=== PATIENT | female | born 1965 | race Caucasian/White ===

== ENCOUNTER 2016-11-08 03:39 | Emergency (ER) | payer BC, OTHER ==
[~2016-11-08] VITALS: Ht 167.6 cm; Wt 72.0 kg
[~2016-11-08 03:39] MED LIST: 1-ME1LIQ PO; LORTA5 PO; PERC5TAB12 PO; TAMS.4 PO; TAMS0.4C67 PO; ZOFR4TAB3 PO; ZOFR4TAB3 SL
[2016-11-08 03:41] VITALS: BP 168/90; PULSE 84; RESP 16; TEMP 97.9; O2SAT 96
[2016-11-08] MEDS ORDERED: AMLO10TA2 PO (03:59)
[2016-11-08] MEDS ORDERED: CYCL1TAB29 PO (03:59)
[2016-11-08] MEDS ORDERED: MELO-1 PO (03:59)
[2016-11-08] MEDS ORDERED: OMEP20TA PO (03:59)
[2016-11-08] MEDS ORDERED: LISI-515 PO (03:59)
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
[2016-11-08] MEDS ORDERED: BACT800T5 PO (04:28)
== END 2016-11-08 04:37 | disposition home or self-care (01) ==
LOC: NEPB 03:39
DX: L03.111 Cellulitis of right axilla (principal); I10 Essential (primary) hypertension; Z79.899 Other long term (current) drug therapy
CPT/HCPCS: 99283

== ENCOUNTER 2017-04-15 11:12 | Emergency (ER) | payer OTHER ==
[~2017-04-15] VITALS: Ht 157.5 cm; Wt 70.0 kg
[~2017-04-15 11:12] MED LIST changes: -1-ME1LIQ PO; +AMLO10TA2 PO; +BACT800T5 PO; +CYCL1TAB29 PO; +LISI-515 PO; -LORTA5 PO; +MELO-1 PO; +OMEP20TA PO; -PERC5TAB12 PO; -TAMS.4 PO; -TAMS0.4C67 PO; -ZOFR4TAB3 PO; -ZOFR4TAB3 SL
[2017-04-15 11:14] VITALS: BP 137/85; PULSE 99; RESP 18; TEMP 98.6; O2SAT 99
--- NOTE | 2017-04-15 11:26 | PD ---
Physical Exam Time Seen by Provider: 11:24 Narrative 51 y/o female here for evaluation of anxiety/depression. Vital signs reviewed. Seen at triage desk. Awaiting bed placement. Data Data Last Documented VS Vital Signs Date Time Temp Pulse Resp B/P Pulse Ox O2 Delivery O2 Flow Rate FiO2 04/15/17 11:14 98.6 99 18 137/85 99 Room Air [facility] Medical Record Reviewed: Yes Supervised Visit with BERNARDO: Eric Weeks Apr 15, 2017 11:26
[2017-04-15 12:07] LABS: AUTOMATED NEUTROPHIL # 4.9 TH/MM3 (1.8-7.7); BASOPHIL # 0.1 TH/MM3 (0-0.2); BASOPHIL % 0.7 % (0.0-2.0); EOSINOPHIL % 0.6 % (0.0-4.0); HEMATOCRIT 43.1 % (35.0-46.0); HEMO FLAGS DIFF FINAL; LYMPH % 24.7 % (9.0-44.0); LYMPHOCYTE # 1.9 TH/MM3 (1.0-4.8); MEAN CELL VOLUME 91.1 FL (80.0-100.0); MEAN CORPUSCULAR HEMOGLOBIN 29.5 PG (27.0-34.0); MEAN CORPUSCULAR HGB CONC 32.4 % (32.0-36.0); PLATELET COUNT 212 TH/MM3 (150-450); RED BLOOD COUNT 4.73 MIL/MM3 (4.00-5.30); RED CELL DISTRIBUTION WIDTH 13.7 % (11.6-17.2); WHITE BLOOD COUNT 7.7 TH/MM3 (4.0-11.0)
[2017-04-15 12:20] LABS: BICARBONATE 24.3 MEQ/L (21.0-32.0); POTASSIUM 3.7 MEQ/L (3.5-5.1)
[2017-04-15 12:44] LABS: AMPHETAMINE, URINE NEG (NEG); BARBITURATES, URINE NEG (NEG); COCAINE, URINE NEG (NEG)
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
[2017-04-15 22:00] VITALS: BP 134/82; PULSE 83; RESP 18; O2SAT 96
[2017-04-16 04:26] VITALS: BP 127/69; PULSE 74; RESP 18; O2SAT 98
[2017-04-16 06:11] VITALS: BP 107/67; PULSE 67; RESP 17; O2SAT 99
[2017-04-16 09:26] VITALS: BP 110/68; TEMP 98.7
== END 2017-04-16 09:30 | disposition home or self-care (01) ==
LOC: NEPD 11:12 → NEPJ 04-16 09:30
DX: F32.9 Major depressive disorder, single episode, unspecified (principal); M13.88 Other specified arthritis, other site; I10 Essential (primary) hypertension; Z79.899 Other long term (current) drug therapy
CPT/HCPCS: 80048; 80307; 85025; 99284

== ENCOUNTER 2017-05-04 13:16 | Emergency (ER) | payer OTHER ==
[~2017-05-04 13:16] MED LIST changes: -BACT800T5 PO
[2017-05-04 13:22] VITALS: BP 135/83; PULSE 79; RESP 25; TEMP 98.2; O2SAT 100
[2017-05-04] MEDS ORDERED: ALPR.5 PO (14:05)
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
[2017-05-04] MEDS ORDERED: LORazepam 2 MG/ML VIAL IM ONE (14:15)
== END 2017-05-04 14:29 | disposition home or self-care (01) ==
LOC: PHED 13:16
DX: F41.1 Generalized anxiety disorder (principal); I10 Essential (primary) hypertension
CPT/HCPCS: 96372; 99283; J2060

== ENCOUNTER 2017-06-26 11:32 | Emergency (ER) | payer OTHER ==
[~2017-06-26] VITALS: Ht 157.5 cm; Wt 69.0 kg
[~2017-06-26 11:32] MED LIST changes: +ALPR.5 PO
[2017-06-26 11:35] VITALS: BP 109/69; PULSE 77; RESP 20; TEMP 97.5; O2SAT 100
[2017-06-26] MEDS ORDERED: SODIUM CHLOR 0.9% 1000 ML INJ 1,000 ML IV ONE (12:00)
[2017-06-26] MEDS ORDERED: hydrOXYzine HCL 50 MG/ML VIAL IM ONE (12:00)
[2017-06-26 12:22] LABS: AUTOMATED NEUTROPHIL # 4.5 TH/MM3 (1.8-7.7); BASOPHIL # 0.2 TH/MM3 (0-0.2); BASOPHIL % 2.4 % (0.0-2.0); EOSINOPHIL # 0.1 TH/MM3 (0-0.4); EOSINOPHIL % 1.5 % (0.0-4.0); HEMATOCRIT 37.9 % (35.0-46.0); HEMO FLAGS DIFF FINAL; LYMPH % 29.8 % (9.0-44.0); LYMPHOCYTE # 2.4 TH/MM3 (1.0-4.8); MEAN CELL VOLUME 89.1 FL (80.0-100.0); MEAN CORPUSCULAR HEMOGLOBIN 29.1 PG (27.0-34.0); MEAN CORPUSCULAR HGB CONC 32.7 % (32.0-36.0); MONO % 9.3 % (0.0-8.0); PLATELET COUNT 223 TH/MM3 (150-450); RED BLOOD COUNT 4.25 MIL/MM3 (4.00-5.30); RED CELL DISTRIBUTION WIDTH 13.1 % (11.6-17.2); WHITE BLOOD COUNT 7.9 TH/MM3 (4.0-11.0)
[2017-06-26 12:30] LABS: CHLORIDE 104 MEQ/L (98-107); POTASSIUM 3.9 MEQ/L (3.5-5.1); SODIUM (NA) 138 MEQ/L (136-145)
[2017-06-26 12:33] LABS: ANION GAP 8 MEQ/L (5-15); BICARBONATE 25.7 MEQ/L (21.0-32.0)
[2017-06-26 12:34] LABS: BLOOD UREA NITROGEN 12 MG/DL (7-18)
[2017-06-26 12:36] LABS: ALT (GPT) 26 U/L (10-53)
[2017-06-26] MEDS ORDERED: SERT-132 PO (12:36)
[2017-06-26] MEDS ORDERED: CLON0.5T PO (12:36)
[2017-06-26 12:37] LABS: AST (GOT) 25 U/L (15-37); GLOMERULAR FILTRATION RATE 86 ML/MIN (>89)
[2017-06-26 12:38] LABS: TOTAL BILIRUBIN ADULT 0.3 MG/DL (0.2-1.0)
[2017-06-26 12:39] LABS: ALKALINE PHOSPHATASE 114 U/L (45-117)
[2017-06-26 13:09] VITALS: BP 92/60; PULSE 69; RESP 16; TEMP 98; O2SAT 96
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
--- NOTE | 2017-06-26 14:13 | EKG ---
Date Performed: 06/26/2017 Time Performed: 12:12:07 PTAGE: 52 years EKG: Sinus rhythm NORMAL ECG PREVIOUS TRACING : 10/24/2015 20.22 DOCTOR: Cecil Saini Interpretating Date/Time 06/26/2017 14:11:50
== END 2017-06-26 13:35 | disposition home or self-care (01) ==
LOC: PHED 11:32
DX: F41.9 Anxiety disorder, unspecified (principal); I10 Essential (primary) hypertension
CPT/HCPCS: 80053; 85025; 93005; 96372; 99284; J3410

== ENCOUNTER 2018-01-28 13:18 | Day surgery (SDC) | payer OTHER ==
[~2018-01-28 13:18] MED LIST changes: -ALPR.5 PO; +CLON0.5T PO; -CYCL1TAB29 PO; -MELO-1 PO; -OMEP20TA PO; +SERT-132 PO
[2018-01-28] MEDS ORDERED: IOHEXOL 350 MG/ML 50 ML BTL (for RAD DIAG) OTHER ONE (15:05)
[2018-01-28] MEDS ORDERED: STERILE WATER FOR INJECTION 10 ML VIAL ONE (15:10)
[2018-01-28] MEDS ORDERED: SODIUM CHLORIDE 0.9% ONE (15:19)
[2018-01-28 15:35] VITALS: BP 134/92; PULSE 68; RESP 20; TEMP 98.4; O2SAT 97
[2018-01-28 15:55] VITALS: BP 138/96; PULSE 69; RESP 20; O2SAT 96
--- NOTE | 2018-01-28 15:56 | RADRPT ---
EXAM DATE/TIME: 01/28/2018 15:21 [place] COMPARISON: No previous studies available for comparison. INDICATIONS : Patient with a history of right knee pain and effusion. MEDICAL HISTORY : None SURGICAL HISTORY : Right knee replacement ENCOUNTER: Initial ACUITY: 2 day PAIN SCORE: 8/10 LOCATION: Right knee FLUORO TIME: 1.6 minutes IMAGE SERIES: 1 CONTRAST: 8 cc Omnipaque 350 DEVICE(S): 22 gauge needle was placed into the right knee joint. RESPONSE: Pre procedure pain level was 8/10 Post procedure pain level was 5/10 FLUID: Total volume of2 cc of cloudy red fluid was removed. Fluid specimen was submitted to the lab for evaluation. PROCEDURE : 1. Fluoroscopically guided right knee aspiration. The risks, benefits and alternatives to the procedure were explained and verbal and written consent w as obtained. The site was prepped in sterile fashion. Full sterile technique was used, including ca p, mask, sterile gloves and gown and a large sterile sheet. Hand hygiene and 2% chlorhexidine and/or betadine/alcohol prep was utilized per protocol for cutaneous antisepsis. The skin and subcutaneous tissues were infiltrated with local anesthetic solution. Under draped fluoroscopic guidance, a 22 gauge spinal needle was introduced to the medial compartment of the right knee using an anterior approach. Small-volume contrast injection was performed to confi rm intra-articular positioning. There was no spontaneous return of fluid from the joint. Approximate ly 5 ML's of sterile saline was then flushed into the joint. A small volume of fluid was then reaspir ated and sent for requested evaluation. The patient tolerated the procedure well and there were no complications. CONCLUSION: Uncomplicated aspiration as above. Bruce Garg MD on January 28, 2018 at 15:51 Board Certified Radiologist. This report was verified electronically.
[2018-01-28 16:53] LABS: WBC, SYNOVIAL FLUID 1 /MM3 (0-200)
== END 2018-01-28 16:00 | disposition home or self-care (01) ==
LOC: HRIP 13:18 → HRAD 13:18
PROVIDERS: ATTEND Orthopaedic Surgery Sports Medicine
DX: M25.461 Effusion, right knee (principal); Z96.651 Presence of right artificial knee joint; I10 Essential (primary) hypertension
CPT/HCPCS: 20610; 77002; 87070; 87205; 89051; Q9967

== ENCOUNTER → 2018-02-25 | Outpatient (CLI) | payer OTHER ==
[~2018-02-25] MED LIST changes: +ASPI81CH6 CHEW; +HYDR-3288 PO; +LISI40TA PO; +MONT10TA4 PO
== END ==
LOC: CPRE 10:19
PROVIDERS: ATTEND Orthopaedic Surgery Sports Medicine
DX: Z01.818 Encounter for other preprocedural examination (principal)

== ENCOUNTER 2018-03-07 07:19 | Inpatient (IN) | payer OTHER ==
[~2018-03-07] VITALS: Ht 157.5 cm; Wt 62.1 kg
[~2018-03-07 07:19] MED LIST changes: -ASPI81CH6 CHEW; -HYDR-3288 PO; -LISI-515 PO
[2018-03-07] MEDS ORDERED: HYDR-3288 PO (08:29)
[2018-03-07] MEDS ORDERED: ASPI81CH6 CHEW (08:33)
[2018-03-07] MEDS ORDERED: POVIDONE IODINE 5% (ANTISEPSIS KIT) 4 APPLICATIONS EACH NARE PRN (08:45)
[2018-03-07] MEDS ORDERED: METOPROLOL TARTRATE 25 MG TAB PO PRN (08:45)
[2018-03-07] MEDS ORDERED: DEXAMETHASONE SOD PHOS 20 MG/5 ML VIAL IV PUSH ONE (08:45)
[2018-03-07] MEDS ORDERED: TRANEXAMIC ACID IV SCH ×2 (08:45→10:30)
[2018-03-07] MEDS ORDERED: SODIUM CHLORIDE 0.9% IV SCH ×2 (08:45→10:30)
[2018-03-07] MEDS ORDERED: POVIDONE IODINE 7.5% SCRUB 118 ML BOTTLE TOPICAL SCH (08:45)
[2018-03-07] MEDS ORDERED: CHLORHEXIDINE GLUCONATE 4% SOLN 120 ML BTL TOPICAL SCH (08:45)
[2018-03-07] MEDS ORDERED: ROPIVACAINE PERI-ARTICULAR INJECTION. P-ARTICULR SCH ×5 (08:45)
[2018-03-07] MEDS ORDERED: ceFAZolin 2 GM PREMIX 50 ML IV SCH (08:45)
[2018-03-07] MEDS ORDERED: VANCOMYCIN 1 GM/200 ML PREMIX IV SCH (08:45)
[2018-03-07] MEDS ORDERED: LACTATED RINGER'S 1000 ML IV PRN (08:45)
[2018-03-07] MEDS ORDERED: CHLORHEXIDINE GLUCONATE 2 % 1 PACK (2 CLOTHS) TOPICAL PRN (08:45)
[2018-03-07] MEDS ORDERED: SODIUM CHLORID 0.9% 500 ML IV PRN (08:45)
[2018-03-07] MEDS ORDERED: TRANEXAMIC PERI-ARTICULAR 3,000 MG/NS 100 ML P-ARTICULR SCH ×2 (08:45)
[2018-03-07] MEDS ORDERED: Post-op Orders (for Pharmacy) XX ONE (09:30)
[2018-03-07] MEDS ORDERED: ACETAMINOPHEN/HYDROcodone 325 MG/7.5 MG TAB PO PRN (09:30)
[2018-03-07] MEDS ORDERED: diphenhydrAMINE HCL 50 MG/ML VIAL IV PUSH PRN (09:30)
[2018-03-07] MEDS ORDERED: ONDANSETRON ODT 4 MG TAB PO PRN (09:30)
[2018-03-07 09:47] VITALS: PULSE 55
[2018-03-07] MEDS ORDERED: GENTAMICIN SULFATE 80 MG/2 ML VIAL ONE (10:30)
[2018-03-07] MEDS ORDERED: ACETAMINOPHEN 1000 MG/100 ML 100 ML IV ONE (10:35)
[2018-03-07] MEDS ORDERED: BUPIVACAINE LIPOSOME PF 1.3% 20 ML VIAL ONE (10:46)
[2018-03-07] MEDS ORDERED: MIDAZOLAM HCL 2 MG/2 ML VIAL ONE (10:46)
--- NOTE | 2018-03-07 12:57 | MP ---
cc: Savage Carbajal MD DATE OF OPERATION: 03/07/2018 DATE OF OPERATION: 03/07/2018. PREOPERATIVE DIAGNOSIS: Right failed total knee arthroplasty. POSTOPERATIVE DIAGNOSIS: Right failed total knee arthroplasty. PROCEDURE PERFORMED: Revision patellofemoral component, right total knee arthroplasty. SURGEON: Savage Carbajal MD RETAIL CASHIER ASSOCIATE: MADAN Ladd. ANESTHESIA: General. ESTIMATED BLOOD LOSS: 100 mL TOURNIQUET TIME: 18 minutes at 250 mmHg. COMPLICATIONS: None. IMPLANTS USED: Biomet 31 mm patellofemoral component. JUSTIFICATION: This patient is a 52-year-old female who has undergone previous right total knee arthroplasty. She has had progressive symptoms of pain and also stiffness in regard to her knee. Most of the symptoms localize to the region of the patellofemoral joint. The patient has failed conservative treatment and x-rays show significant arthritic narrowing and osteophyte formation at the patellofemoral joint. The patient was counseled on the risks, benefits and alternatives to a total knee arthroplasty revision involving the patellofemoral joint. The risks of surgery were discussed, which include, but are not limited to anesthesia, bleeding, infection, damage to nerves and blood vessels, pain, stiffness, failure of components, blood clots, pulmonary embolism. The patient did wish to proceed with surgery. She favored the benefits over the risks. PROCEDURE IN DETAIL: Written consent was obtained. The patient was identified by name, taken to the operating room and placed supine on the operating room table. General anesthesia was administered to the patient, as well as 2 grams of IV Ancef and 1 gram of IV vancomycin. A well-padded tourniquet was placed on the right thigh, the right lower extremity prepped and draped using isopropyl alcohol, Hibiclens solution and ChloraPrep solution. After a timeout was performed, an Esmarch bandage was used to exsanguinate the right lower extremity, the tourniquet inflated to 250 mmHg. Longitudinal incision made over the anterior aspect of the right knee. A medial parapatellar arthrotomy was performed. The patellofemoral ligament was released to allow for further exposure of the patella. There was no evidence of purulence or infection within the knee joint itself. The undersurface of the patella showed severe arthritic change and osteophyte formation with eburnation of bone and some excessive wear of the lateral facet. An oscillating saw was used to perform a resection of the undersurface of the patella of approximately 8 mm. Subsequently, a size 31 mm guide was placed along the undersurface of the patella and three drill holes were placed. At this point, a size 31 Biomet patella was then cemented in place. This was clamped in place to allow for the cement to harden. A lateral release was performed, which allowed for central patellar tracking and also for appropriate exposure. After implantation of the new patellofemoral component, the knee was taken through a full range of motion with central patellar tracking. The patient did have significant arthrofibrosis of her knee joint, but with gentle manipulation, I was able to get her knee to approximately 130 degrees of flexion as well as full extension. No varus or valgus instability. The tourniquet was deflated. Bovie cautery was used for hemostasis. The surgical wound was thoroughly irrigated with sterile saline pulse lavage antibiotic impregnated solution. The arthrotomy incision was closed with #1 Vicryl suture, subcutaneous layer with 2-0 Vicryl suture. The skin was closed with Dermabond. Sterile dressing applied. The patient tolerated the procedure well with no intraoperative complications noted. Devon Mendoza, physician environmental assistant certified, was present for the entire procedure to include patient positioning and the procedure itself. The medical necessity of the physician environmental assistant was indicated in this case due to the complexity of the procedure. He assisted with appropriate manipulation of the leg, retraction of muscles, tendons, bone and neurovascular structures. He assisted in preparation of bone and also implantation of the prosthetic replacement. MD AYANA Crandall/CHAPARRO , 12:38 PM , 12:57 PM
[2018-03-07] MEDS ORDERED: DO NOT ADM ANY ANTICOAGULANT DRUGS PRN (13:00)
[2018-03-07] MEDS ORDERED: *morphine SULFATE 10 MG/ML PERIprocedure ONLY ONE (13:27)
[2018-03-07] MEDS: SODIUM CHLOR 0.9% 1000 ML INJ 1,000 ML IV SCH ×2 (13:30→20:45)
--- NOTE | 2018-03-07 13:38 | RADRPT ---
EXAM DATE: 03/07/2018 1:35 PM EDT AGE/SEX: 52 years / Female INDICATIONS: Post op right knee. CLINICAL DATA: This is the patient's initial encounter. Patient reports that signs and symptoms have been present for 1 day and indicates a pain score of Nonresponsive. MEDICAL/SURGICAL HISTORY: None. None. COMPARISON: [facility] – [place], KNEE RIGHT LTD (1 OR 2 VWS), 06/07/2013. . FINDINGS: AP and lateral views of the knee following arthroplasty reveals a prosthesis in anatomic alignment. F racture is not appreciated. \ CONCLUSION: Status post total knee arthroplasty. Leonard Espinoza MD FACR Electronically signed by: Leonard Espinoza MD 03/07/2018 1:36 PM EDT
--- NOTE | 2018-03-07 13:53 | PD.CONS ---
[facility] By Primary Care Physician Sintia Navarro D.O. Diagnoses: History of Present Illness 52-year-old female with a history of depression, anxiety, osteoarthritis who presents following elective right knee revision patellofemoral component. She reports that pain is currently controlled. Denies any chest pain or shortness of breath. Denies nausea or vomiting. Reports was recent bowel movement was yesterday. Says she felt fine prior to surgery with no recent fevers, chills, dysuria. Review of Systems Except as stated in HPI: all other systems reviewed are Neg Past Family Social History Allergies: Coded Allergies: oxycodone (Verified Adverse Reaction, Severe, Irritability/Anxiety, ) chlorhexidine (Verified Adverse Reaction, Mild, itching, 03/07/18) Past Medical History Hypertension Osteoarthritis Depression Anxiety Past Surgical History Appendectomy Tonsillectomy Hysterectomy Bilateral hand surgery with hardware Reported Medications Amlodipine 10 mg p.o. twice daily Lisinopril 40 mg p.o. daily Clonazepam 0.5 mg p.o. twice daily Sertraline 100 mg p.o. daily Montelukast 10 mg p.o. at bedtime Family History Mother with stroke, CABG. Mother's heart disease began in her 40s. Father is estranged Social History Non-smoker. Nondrinker. Denies illicit drugs. Physical Exam Vital Signs Vital Signs Date Time Temp Pulse Resp B/P (MAP) Pulse Ox O2 Delivery O2 Flow Rate FiO2 03/07/18 13:30 72 13 124/70 (88) 100 03/07/18 13:15 72 13 127/65 (85) 100 03/07/18 13:00 102 18 129/72 (91) 100 03/07/18 12:59 97.5 100 18 129/74 (92) 100 Nasal Cannula 2 03/07/18 09:47 100 Nasal Cannula 2 03/07/18 09:47 55 03/07/18 09:30 98.7 65 20 112/76 (88) 98 Physical Exam GENERAL: This is a well-nourished, well-developed patient, in no apparent distress. Somnolent, oriented 3. SKIN: No rashes, ecchymoses or lesions. Cool and dry. HEAD: Atraumatic. Normocephalic. No temporal or scalp tenderness. EYES: Pupils equal round and reactive. Extraocular motions intact. No scleral icterus. No injection or drainage. ENT: Nose without bleeding, purulent drainage or septal hematoma. Throat without erythema, tonsillar hypertrophy or exudate. Uvula midline. Airway patent. NECK: Trachea midline. No JVD or lymphadenopathy. Supple, nontender, no meningeal signs. CARDIOVASCULAR: Regular rate and rhythm without murmurs, gallops, or rubs. RESPIRATORY: Clear to auscultation. Breath sounds equal bilaterally. No wheezes , rales, or rhonchi. GASTROINTESTINAL: Abdomen soft, non-tender, nondistended. No hepato-splenomegaly , or palpable masses. No guarding. MUSCULOSKELETAL: Extremities without clubbing, cyanosis, or edema. No joint tenderness, effusion, or edema noted. No calf tenderness. Negative Homans sign bilaterally. NEUROLOGICAL: Awake and alert. Cranial nerves II through XII intact. Motor and sensory grossly within normal limits. Postoperative right leg in brace. Peripheral perfusion intact.. Normal speech. Assessment and Plan Assessment and Plan //Postoperative right knee revision patellofemoral component, right knee arthroplasty on 03/07 Postsurgical management as per surgical service Pain management as per surgical service //Hypertension. Chronic. Blood pressure acceptable. Continue home medications. //Depression. Anxiety. Chronic. -On clonazepam and sertraline at home. =Continue home medications. //Chronic allergies. Continue Singulair. Discussed Condition With Patient, nurse Savage Cuevas MD Mar 07, 2018 13:53
[2018-03-07 17:00] VITALS: BP 95/56; PULSE 64; RESP 16; TEMP 97.6; O2SAT 94
[2018-03-07] MEDS: CEFAZOLIN INJ 1,000 MG in SODIUM CHLORIDE 0.9% INJ 100 ML IV SCH ×2 (17:30→23:00)
[2018-03-07 19:25] VITALS: BP 96/63; PULSE 64; RESP 16; TEMP 97.4; O2SAT 96
[2018-03-07] MEDS: MONTELUKAST SODIUM 10 MG TAB PO SCH (20:44)
[2018-03-07] MEDS: clonazePAM 0.5 MG TAB PO SCH (20:44)
[2018-03-07] MEDS ORDERED: ZOLPIDEM TARTRATE 5 MG TAB PO PRN (21:00)
[2018-03-08 00:20] VITALS: BP 114/63; PULSE 56; RESP 16; TEMP 98; O2SAT 94
[2018-03-08] MEDS: MORPHINE SULFATE 4 MG/ML INJ IV PUSH PRN ×2 (00:30→20:47)
[2018-03-08 04:25] VITALS: BP 101/61; PULSE 59; RESP 16; TEMP 98; O2SAT 93
[2018-03-08] MEDS: ACETAMINOPHEN/HYDROcodone 325 MG/7.5 MG TAB PO PRN ×4 (04:45→23:56)
[2018-03-08] MEDS: CEFAZOLIN INJ 1,000 MG in SODIUM CHLORIDE 0.9% INJ 100 ML IV SCH (04:46)
[2018-03-08] MEDS: SODIUM CHLOR 0.9% 1000 ML INJ 1,000 ML IV SCH ×2 (04:47→15:30)
[2018-03-08 07:01] LABS: HEMATOCRIT 28.6 % (35.0-46.0); HEMOGLOBIN 9.3 GM/DL (11.6-15.3); MEAN CELL VOLUME 87.4 FL (80.0-100.0); MEAN CORPUSCULAR HEMOGLOBIN 28.4 PG (27.0-34.0); MEAN CORPUSCULAR HGB CONC 32.5 % (32.0-36.0); MEAN PLATELET VOLUME 10.6 FL (7.0-11.0); PLATELET COUNT 160 TH/MM3 (150-450); RED BLOOD COUNT 3.28 MIL/MM3 (4.00-5.30); RED CELL DISTRIBUTION WIDTH 15.2 % (11.6-17.2); WHITE BLOOD COUNT 10.6 TH/MM3 (4.0-11.0)
[2018-03-08 07:23] LABS: BICARBONATE 24.9 MEQ/L (21.0-32.0); CALCIUM 8.2 MG/DL (8.5-10.1); CREATININE 0.56 MG/DL (0.50-1.00)
[2018-03-08 08:00] VITALS: BP 95/55; PULSE 63; RESP 16; TEMP 97; O2SAT 92
[2018-03-08] MEDS ORDERED: LIDOCAINE VISCOUS 2% SOLN 15 ML UDC SWISH-SWAL PRN (08:45)
[2018-03-08] MEDS ORDERED: RESP: ALBUTEROL 2.5 MG/3 ML NEB (PRN) NEB (08:45)
[2018-03-08] MEDS: LISINOPRIL 20 MG TAB PO SCH ×2 (09:00→09:25)
[2018-03-08] MEDS: SERTRALINE HCL 50 MG TAB PO SCH ×2 (09:00→09:25)
--- NOTE | 2018-03-08 09:05 | PD.ORT.PN ---
Subjective Post Op Day #: 1 Subjective Remarks pain tolerable Objective Vitals Vital Signs Date Time Temp Pulse Resp B/P (MAP) Pulse Ox O2 Delivery O2 Flow Rate FiO2 03/08/18 04:25 98.0 59 16 101/61 (74) 93 03/08/18 00:20 98.0 56 16 114/63 (80) 94 03/07/18 19:25 97.4 64 16 96/63 (74) 96 03/07/18 17:30 97.9 68 16 107/58 (74) 98 Room Air 03/07/18 17:00 97.6 64 16 95/56 (69) 94 03/07/18 17:00 76 16 102/61 (75) 98 03/07/18 16:00 84 18 95/51 (66) 97 03/07/18 15:00 73 18 99/57 (71) 98 03/07/18 14:15 72 18 91/50 (64) 100 03/07/18 14:00 63 13 91/52 (65) 100 03/07/18 13:45 65 12 107/59 (75) 100 03/07/18 13:30 72 13 124/70 (88) 100 03/07/18 13:15 72 13 127/65 (85) 100 03/07/18 13:00 102 18 129/72 (91) 100 03/07/18 12:59 97.5 100 18 129/74 (92) 100 Nasal Cannula 2 03/07/18 09:47 100 Nasal Cannula 2 03/07/18 09:47 55 03/07/18 09:30 98.7 65 20 112/76 (88) 98 I/O 03/07/18 03/07/18 03/07/18 03/08/18 03/08/18 03/08/18 07:00 15:00 23:00 07:00 15:00 23:00 Intake Total 1200 ml 120 ml 720 ml Output Total 100 ml Balance 1100 ml 120 ml 720 ml Intake Oral 120 ml 720 ml IV Total 1200 ml Output Estimated Blood Loss 100 ml # Voids 1 1 # Bowel Movements 0 Result Diagram: 03/08/18 0549 03/08/18 0549 Objective Remarks in bed, nad dressing c/d/i neg homans nvi Assessment & Plan Ortho Post Op Day #: 1 Problem List: Assessment and Plan s/p revision R TKA wbat ok to maintain dressing unless saturated lovenox, d/c on asa81 PT d/c planning home with hhc and pt - probably Wed f/up dr. ferreira 2 weeks Savage Mendoza Mar 08, 2018 09:05
--- NOTE | 2018-03-08 09:06 | HHI.DCPOC ---
Discharge Care Plan Diagnosis: (1) Failed total knee, right Your Health Problems Are: Difficulty with ADL Goals to Promote Your Health * To prevent worsening of your condition and complications * To maintain your health at the optimal level Directions to Meet Your Goals Take your medications as prescribed Follow your dietary instruction Follow activity as directed Keep your appointments as scheduled Take your immunizations and boosters as scheduled If your symptoms worsen call your PCP, if no PCP go to Urgent Care Center or Emergency Room Smoking is Dangerous to Your Health. Avoid second hand smoke Call the 24-hour hour crisis hotline for domestic abuse at Savage Mendoza Mar 08, 2018 09:06
--- NOTE | 2018-03-08 09:07 | HHI.FF ---
Face to Face Verification Diagnosis: (1) Failed total knee, right Physical Therapy Gait training, Safety evaluation, Transfer training, bed to chair Knee: Total knee, Protocol: Right, Full weight bearing Right LE Weight Bearing: WB as tolerated Nursing RN: 3 days/week x 2 weeks Nursing: Dressing changes Dressing Changes: Daily dressing change I have seen patient Samanta Garrett on 03/08/18. My clinical findings support the need for the requested home health care services because: Limited ability to care for self High risk of falls I certify that my clinical findings support that this patient is homebound because: Post-op weakness Unsteady gait/balance Savage Mendoza Mar 08, 2018 09:07
[2018-03-08] MEDS: clonazePAM 0.5 MG TAB PO SCH ×2 (09:25→20:47)
--- NOTE | 2018-03-08 10:15 | HHI.PR ---
Subjective Remarks Follow-up for right TKA revision, hypertension. Patient complains of a mild sore/scratchy throat from intubation. She is also requesting an incentive spirometer. She states she has inhalers and nebulizers at home as needed but does not use them frequently. She reports continued right knee pain rated 7/10 currently, does get relief with pain medications. She has no other medical complaints at this time. Denies any fever/chills, chest pain, abdominal pain, nausea/vomiting, or urinary complaints. Objective Vitals Vital Signs Date Time Temp Pulse Resp B/P (MAP) Pulse Ox O2 Delivery O2 Flow Rate FiO2 03/08/18 04:25 98.0 59 16 101/61 (74) 93 03/08/18 00:20 98.0 56 16 114/63 (80) 94 03/07/18 19:25 97.4 64 16 96/63 (74) 96 03/07/18 17:30 97.9 68 16 107/58 (74) 98 Room Air 03/07/18 17:00 97.6 64 16 95/56 (69) 94 03/07/18 17:00 76 16 102/61 (75) 98 03/07/18 16:00 84 18 95/51 (66) 97 03/07/18 15:00 73 18 99/57 (71) 98 03/07/18 14:15 72 18 91/50 (64) 100 03/07/18 14:00 63 13 91/52 (65) 100 03/07/18 13:45 65 12 107/59 (75) 100 03/07/18 13:30 72 13 124/70 (88) 100 03/07/18 13:15 72 13 127/65 (85) 100 03/07/18 13:00 102 18 129/72 (91) 100 03/07/18 12:59 97.5 100 18 129/74 (92) 100 Nasal Cannula 2 I/O 03/07/18 03/07/18 03/07/18 03/08/18 03/08/18 03/08/18 07:00 15:00 23:00 07:00 15:00 23:00 Intake Total 1200 ml 120 ml 720 ml Output Total 100 ml Balance 1100 ml 120 ml 720 ml Intake Oral 120 ml 720 ml IV Total 1200 ml Output Estimated Blood Loss 100 ml # Voids 1 1 # Bowel Movements 0 Result Diagram: 03/08/18 0549 03/08/18 0549 Imaging Last Impressions Knee X-Ray 03/07/18 0824 Signed Impressions: CONCLUSION: Status post total knee arthroplasty. Leonard Espinoza MD FACR Objective Remarks GENERAL: Well-nourished, well-developed pleasant middle-age female patient in [facility]. SKIN: Warm and dry. No rash. HEENT: Normocephalic. Atraumatic. Pupils equal and round. Mucous membranes pink and moist. CARDIOVASCULAR: Regular rate and rhythm. No murmur appreciated. RESPIRATORY: No accessory muscle use. Clear to auscultation. Breath sounds equal bilaterally. GASTROINTESTINAL: Abdomen soft, non-tender, nondistended. Normoactive bowel sounds x4. MUSCULOSKELETAL: No obvious deformities. Extremities without clubbing, cyanosis , or edema. RLE and surgical dressing/Michael, CDI. NEUROLOGICAL: Awake and alert. No obvious cranial nerve deficits. Motor grossly within normal limits. Moving all extremities spontaneously. Normal speech. PSYCHIATRIC: Appropriate mood and affect; insight and judgment normal. Procedures 03/07/18 - Revision patellofemoral component, right total knee arthroplasty by Dr. Carbajal Medications and IVs Current Medications Medications (Trade) Dose Ordered Sig/Jl Route Start Time Stop Time Status Last Admin (Norvasc) 10 mg DAILY PO 03/07/18 17:00 03/08/18 09:25 (KlonoPIN) 0.5 mg BID PO 03/07/18 09:00 03/08/18 09:25 (Singulair) 10 mg HS PO 03/07/18 21:00 03/07/18 20:44 (Zoloft) 100 mg DAILY PO 03/07/18 09:00 03/08/18 09:25 (Prinivil) 40 mg DAILY PO 03/07/18 09:30 03/08/18 09:25 Sodium Chloride 1,000 ml @ 100 mls/hr Q10H IV 03/07/18 09:30 03/08/18 04:47 (Lovenox Inj) 40 mg Q24H SQ 03/08/18 12:00 (Morphine Inj) 3 mg Q3H PRN IV PUSH 03/07/18 09:30 03/08/18 00:30 (Mcdonough 7.5-325 Mg) 1 tab Q4H PRN PO 03/07/18 09:30 03/07/18 20:48 (Mcdonough 7.5-325 Mg) 2 tab Q4H PRN PO 03/07/18 09:30 03/08/18 09:26 (Theragran M Tab) 1 tab BID PO 03/08/18 21:00 05/07/18 20:59 (Zofran Odt) 4 mg Q6H PRN PO 03/07/18 09:30 (Colace) 100 mg BID PO 03/08/18 21:00 (Ambien) 5 mg HS PRN PO 03/07/18 21:00 (Benadryl Inj) 25 mg Q6H PRN IV PUSH 03/07/18 09:30 Lactated Ringer's 1,000 ml @ 30 mls/hr Q24H PRN IV 03/07/18 08:45 03/10/18 08:44 03/07/18 08:50 Sodium Chloride 500 ml @ 30 mls/hr [id number] PRN IV 03/07/18 08:45 03/10/18 08:44 (Lopressor) 25 mg TRICOT KNITTING MACHINE OPERATOR PRN PO 03/07/18 08:45 03/10/18 08:44 (Betadine 5% Antisepsis Kit) 1 applic TRICOT KNITTING MACHINE OPERATOR PRN EACH NARE 03/07/18 08:45 03/10/18 08:44 03/07/18 09:00 (Chlorhexidine 2% Cloth) 3 pack TRICOT KNITTING MACHINE OPERATOR PRN TOPICAL 03/07/18 08:45 03/10/18 08:44 (Betadine 7.5% Scrub) 1 applic ONCE TOPICAL 03/07/18 08:45 03/10/18 08:44 03/07/18 09:00 (Hibiclens 4% Top Soln) 1 applic ONCE TOPICAL 03/07/18 08:45 03/10/18 08:44 Cefazolin Sodium/ Dextrose 50 ml @ 100 mls/hr TRICOT KNITTING MACHINE OPERATOR IV 03/07/18 08:45 03/10/18 08:44 03/07/18 10:58 Vancomycin/Sodium Chloride 200 ml @ 200 mls/hr TRICOT KNITTING MACHINE OPERATOR IV 03/07/18 08:45 03/10/18 08:44 03/07/18 10:57 Tranexamic Acid 931 mg/Sodium Chloride 109.31 ml @ 200 mls/ hr ONCE IV 03/07/18 10:30 03/08/18 10:29 03/07/18 11:30 ([facility] [place] [facility] [place]) ALL NURSING DEPARTME... UNSCH PRN .XX 03/07/18 13:00 03/08/18 12:59 (Albuterol Neb) 2.5 mg Q4HR NEB PRN NEB 03/08/18 08:45 (Xylocaine 2% Viscous) 15 ml Q4H PRN SWISH-SWAL 03/08/18 08:45 A/P Assessment and Plan 52-year-old female with history of hypertension, anxiety, depression, osteoarthritis, admitted to [place] for elective right total knee arthroplasty revision by Dr. Carbajal. Hospitalist consulted for medical management. Osteoarthritis s/p right TKA revision: Surgery performed 03/07/[address] Carbajal. -Continue postoperative management per orthopedics -Continue pain control with Mcdonough prn, and IV morphine prn -DVT prophylaxis per orthopedics, on Lovenox -Continue physical therapy -Incentive spirometry Hypertension: Chronic, BP well-controlled on the low side -Continue patient's Norvasc 10 mg daily and lisinopril 40 mg daily -Monitor BP, adjust antihypertensives as needed Anxiety/depression: Chronic -Continue patient's sertraline and clonazepam Postoperative anemia: Hemoglobin 9.3, previously 12.4 in June 2017 -No signs of excessive bleeding -Patient asymptomatic -Stable for now Sore throat: Secondary to intubation -Give viscous lidocaine as needed DVT prophylaxis: On Lovenox per ortho Discharge Planning Orthopedics plans for discharge tomorrow 03/09/18 with home health care. Patient is medically stable. Luz Madrigal PA-C Mar 08, 2018 10:15
[2018-03-08] MEDS: ENOXAPARIN SODIUM 40 MG/0.4 ML SYRINGE SQ SCH (11:56)
[2018-03-08 19:50] VITALS: BP 110/67; PULSE 71; RESP 18; TEMP 97.9; O2SAT 94
[2018-03-08] MEDS: DOCUSATE SODIUM 100 MG CAP PO SCH (20:47)
[2018-03-08] MEDS: MULTIVITAMINS/MINERALS THERAPEUTIC TAB PO SCH (20:47)
[2018-03-08] MEDS: MONTELUKAST SODIUM 10 MG TAB PO SCH (20:47)
[2018-03-09] VITALS: BP 128/58; PULSE 65; RESP 18; TEMP 97.9; O2SAT 95
[2018-03-09] MEDS: ACETAMINOPHEN/HYDROcodone 325 MG/7.5 MG TAB PO PRN ×2 (05:21→12:30)
[2018-03-09] MEDS: SODIUM CHLOR 0.9% 1000 ML INJ 1,000 ML IV SCH ×2 (05:31→11:30)
[2018-03-09 07:58] LABS: HEMATOCRIT 27.8 % (35.0-46.0); MEAN CELL VOLUME 87.1 FL (80.0-100.0); MEAN CORPUSCULAR HEMOGLOBIN 28.3 PG (27.0-34.0); MEAN CORPUSCULAR HGB CONC 32.5 % (32.0-36.0); MEAN PLATELET VOLUME 10.4 FL (7.0-11.0); PLATELET COUNT 158 TH/MM3 (150-450); RED BLOOD COUNT 3.19 MIL/MM3 (4.00-5.30); RED CELL DISTRIBUTION WIDTH 15.7 % (11.6-17.2); WHITE BLOOD COUNT 7.7 TH/MM3 (4.0-11.0)
[2018-03-09 08:00] VITALS: BP 126/76; PULSE 67; RESP 18; TEMP 98.8; O2SAT 93
[2018-03-09] MEDS: MORPHINE SULFATE 4 MG/ML INJ IV PUSH PRN (08:23)
[2018-03-09] MEDS: SERTRALINE HCL 50 MG TAB PO SCH (08:29)
[2018-03-09] MEDS: MULTIVITAMINS/MINERALS THERAPEUTIC TAB PO SCH (08:29)
[2018-03-09] MEDS: DOCUSATE SODIUM 100 MG CAP PO SCH (08:29)
[2018-03-09] MEDS: LISINOPRIL 20 MG TAB PO SCH (08:30)
[2018-03-09] MEDS: clonazePAM 0.5 MG TAB PO SCH (08:30)
[2018-03-09 08:34] LABS: BICARBONATE 26.5 MEQ/L (21.0-32.0); CALCIUM 8.7 MG/DL (8.5-10.1); CREATININE 0.6 MG/DL (0.50-1.00)
--- NOTE | 2018-03-09 10:29 | HHI.PR ---
Subjective Remarks Follow-up for right TKA revision, hypertension. Patient is seen and examined resting in bed comfortably in no acute distress. She reports bad pain overnight , this am had pain medication rates right knee pain 8/. Reports no acute concerns or complaints at the moment. Spoke with nurse who states patient has plans to be DC today after she attends class around 1pm. Objective Vitals Vital Signs Date Time Temp Pulse Resp B/P (MAP) Pulse Ox O2 Delivery O2 Flow Rate FiO2 03/09/18 08:00 98.8 67 18 126/76 (93) 93 03/09/18 00:00 97.9 65 18 128/58 (81) 95 03/08/18 19:50 97.9 71 18 110/67 (81) 94 I/O 03/08/18 03/08/18 03/08/18 03/09/18 03/09/18 03/09/18 07:00 15:00 23:00 07:00 15:00 23:00 Intake Total 720 ml 520 ml Balance 720 ml 520 ml Intake Oral 720 ml 520 ml # Voids 1 3 # Bowel Movements 0 Result Diagram: 03/09/18 0650 03/09/18 0650 Imaging Last Impressions Knee X-Ray 03/07/18 0824 Signed Impressions: CONCLUSION: Status post total knee arthroplasty. Leonard Espinoza MD FACR Objective Remarks GENERAL: Well-nourished, well-developed pleasant middle-age female patient in [facility]. SKIN: Warm and dry. No rash. HEENT: Normocephalic. Pupils equal and round. Mucous membranes pink and moist. CARDIOVASCULAR: Regular rate and rhythm. No murmur appreciated. RESPIRATORY: No accessory muscle use. Clear to auscultation. Breath sounds equal bilaterally. GASTROINTESTINAL: Abdomen soft, non-tender, nondistended. Normoactive bowel sounds x4. MUSCULOSKELETAL: No obvious deformities. Extremities without clubbing, cyanosis , or edema. RLE and surgical dressing/Michael, CDI. NEUROLOGICAL: Awake and alert. No obvious cranial nerve deficits. Motor grossly within normal limits. Moving all extremities spontaneously. Normal speech. Procedures 03/07/18 - Revision patellofemoral component, right total knee arthroplasty by Dr. Solomon Zhang/Natacha Assessment and Plan 52-year-old female with history of hypertension, anxiety, depression, osteoarthritis, admitted to [place] for elective right total knee arthroplasty revision by Dr. Carbajal. Hospitalist consulted for medical management. Osteoarthritis s/p right TKA revision: Surgery performed 03/07/[address] Carbajal. -Continue postoperative management per orthopedics -Continue pain control with [place] prn, and IV morphine prn -DVT prophylaxis per orthopedics, on Lovenox -Continue physical therapy -Incentive spirometry Hypertension: Chronic, BP well-controlled on the low side -Continue patient's Norvasc 10 mg daily and lisinopril 40 mg daily -Monitor BP, adjust antihypertensives as needed - BP stable Anxiety/depression: Chronic -Continue patient's sertraline and clonazepam Postoperative anemia: Hemoglobin 9.3, previously 12.4 in June 2017 -No signs of excessive bleeding -Patient asymptomatic -Stable for now Sore throat: Secondary to intubation -Give viscous lidocaine as needed - No complaints DVT prophylaxis: On Lovenox per ortho Discharge Planning DC today after she attends class. Medically clear. Jayshree Jackson Mar 09, 2018 10:29
--- NOTE | 2018-03-09 11:48 | PD.ORT.PN ---
Subjective Post Op Day #: 2 Subjective Remarks pain tolerable. painful night but better now. Objective Vitals Vital Signs Date Time Temp Pulse Resp B/P (MAP) Pulse Ox O2 Delivery O2 Flow Rate FiO2 03/09/18 08:00 98.8 67 18 126/76 (93) 93 03/09/18 00:00 97.9 65 18 128/58 (81) 95 03/08/18 19:50 97.9 71 18 110/67 (81) 94 I/O 03/08/18 03/08/18 03/08/18 03/09/18 03/09/18 03/09/18 07:00 15:00 23:00 07:00 15:00 23:00 Intake Total 720 ml 520 ml Balance 720 ml 520 ml Intake Oral 720 ml 520 ml # Voids 1 3 # Bowel Movements 0 Result Diagram: 03/09/18 0650 03/09/18 0650 Objective Remarks in bed, nad dressing c/d/i neg homans nvi Assessment & Plan Ortho Post Op Day #: 2 Problem List: Assessment and Plan s/p revision R TKA wbat ok to maintain dressing unless saturated lovenox, d/c on asa81 PT d/c planning home with [facility] and pt - cleared today f/up dr. ferreira 2 weeks Savage Mendoza Mar 09, 2018 11:48
[2018-03-09 12:00] VITALS: BP 139/66; PULSE 67; RESP 17; TEMP 98.2; O2SAT 94
[2018-03-09] MEDS: ENOXAPARIN SODIUM 40 MG/0.4 ML SYRINGE SQ SCH (12:00)
== END 2018-03-09 15:42 | disposition home health service (06) | DRG 468 ==
LOC: HSDI 07:57 → N06B 17:52
PROVIDERS: ADMIT Orthopaedic Surgery Sports Medicine; ATTEND Orthopaedic Surgery Sports Medicine
PROC: 0SPC0JC Removal of Synthetic Substitute from Right Knee Joint, Patellar Surface, Open Approach (ICD-10-PCS; 2018-03-07)
PROC: 0SPT0JZ Removal of Synthetic Substitute from Right Knee Joint, Femoral Surface, Open Approach (ICD-10-PCS; 2018-03-07)
PROC: 0SUC09C Supplement Right Knee Joint with Liner, Patellar Surface, Open Approach (ICD-10-PCS; 2018-03-07)
PROC: 0SRT0J9 Replacement of Right Knee Joint, Femoral Surface with Synthetic Substitute, Cemented, Open Approach (ICD-10-PCS; principal; 2018-03-07 11:08)
DX: T84.84XA Pain due to internal orthopedic prosthetic devices, implants and grafts, initial encounter (principal); I10 Essential (primary) hypertension; F32.9 Major depressive disorder, single episode, unspecified; F41.9 Anxiety disorder, unspecified; M17.11 Unilateral primary osteoarthritis, right knee; Y79.2 Prosthetic and other implants, materials and accessory orthopedic devices associated with adverse incidents; D64.9 Anemia, unspecified; J02.9 Acute pharyngitis, unspecified
CPT/HCPCS: 73560; 80048; 82948; 85027; 86850; 86900; 86901; 94150; C1776; C9290; J0131; J0690; J0735; J1100; J1580; J1650; J1885; J2250; J2270; J2795; J3010; J3370; J7030; J7120; L1830